=== PATIENT | male | born 1990 | race African-American/Black ===

== ENCOUNTER 2020-01-24 16:15 | Emergency (ER) | payer SELFPAY ==
[2020-01-24] MEDS ORDERED: NA CHLORIDE 0.9% 1,000 ML ONE (16:54)
[2020-01-24] MEDS ORDERED: dexAMETHasone 10 MG/ML VIAL ONE (17:01)
[2020-01-24 17:27] LABS: Absolute Lymphocytes (CBC) 1.8 K/uL (0.7-4.9); Basophils % 0.5 % (0-1.3); Hematocrit 48.6 % (39.6-49.0); Lymphocytes % 12.1 % (15.3-44.8); MPV 7.9 fL (7.6-11.3); RBC Red Blood Cell Count 5.41 M/uL (4.33-5.43)
[2020-01-24 17:41] LABS: BUN Blood Urea Nitrogen 10 mg/dL (7-18); Bicarbonate 27 mmol/L (21-32); Glucose Level 96 mg/dL (74-106); Potassium 3.7 mmol/L (3.5-5.1); Sodium Level 139 mmol/L (136-145)
--- NOTE | 2020-01-24 18:36 | EDPHYS ---
Physician Documentation [facility] Name: Hung Hernandez Jr Age: 29 yrs Sex: Male : 1990 Arrival Date: 01/24/2020 Time: 16:27 Bed 17 Private MD: ED Physician Reyes Shaffer HPI: 01/23 19:11 This 29 yrs old Black Male presents to ER via Ambulatory with complaints of SORE kb THROAT, DRY MOUTH, DEHYDRATION AND SWOLLEN GLANDS. 19:11 The patient presents with sore throat. The patient describes throat pain as constant. kb Onset: The symptoms/episode began/occurred 4 day(s) ago. Severity of symptoms: At their worst the symptoms were moderate, in the emergency department the symptoms are unchanged. Modifying factors: The symptoms are alleviated by nothing, the symptoms are aggravated by swallowing, Patient's oral intake status: limited fluid intake, limited food intake. Associated signs and symptoms: Pertinent positives: cough, fever, Sore throat. The patient has not experienced similar symptoms in the past. The patient has not recently seen a physician. Historical: - Allergies: 16:41 No Known Allergies; sv - PMHx: 16:41 None; sv - PSHx: 16:41 None; sv - Immunization history:: Adult Immunizations up to date. - Social history:: Smoking status: unknown. ROS: 19:09 Neck: Negative for injury, pain, and swelling, Cardiovascular: Negative for chest pain, kb palpitations, and edema, Abdomen/GI: Negative for abdominal pain, nausea, vomiting, diarrhea, and constipation, Back: Negative for injury and pain, MS/Extremity: Negative for injury and deformity, Skin: Negative for injury, rash, and discoloration. 19:09 Constitutional: Positive for fatigue, fever, malaise. 19:09 ENT: Positive for sore throat. 19:09 Respiratory: Positive for cough, Negative for dyspnea on exertion, hemoptysis, orthopnea, pleurisy, shortness of breath, sputum production, wheezing. 19:09 Neuro: Positive for headache. Exam: 19:09 Constitutional: This is a well developed, well nourished patient who is awake, alert, kb and in no acute distress. Head/Face: Normocephalic, atraumatic. Chest/axilla: Normal chest wall appearance and motion. Nontender with no deformity. No lesions are appreciated. Cardiovascular: Regular rate and rhythm with a normal S1 and S2. No gallops, murmurs, or rubs. Normal PMI, no JVD. No pulse deficits. Respiratory: Lungs have equal breath sounds bilaterally, clear to auscultation and percussion. No rales, rhonchi or wheezes noted. No increased work of breathing, no retractions or nasal flaring. Abdomen/GI: Soft, non-tender, with normal bowel sounds. No distension or tympany. No guarding or rebound. No evidence of tenderness throughout. Skin: Warm, dry with normal turgor. Normal color with no rashes, no lesions, and no evidence of cellulitis. MS/ Extremity: Pulses equal, no cyanosis. Neurovascular intact. Full, normal range of motion. Neuro: Awake and alert, GCS 15, oriented to person, place, time, and situation. Cranial nerves II-XII grossly intact. Motor strength 5/5 in all extremities. Sensory grossly intact. Cerebellar exam normal. Normal gait. 19:09 ENT: Posterior pharynx: Airway: normal, no evidence of obstruction, Tonsils: bilaterally enlarged, with erythema, Uvula: normal, midline, swelling, that is moderate, erythema, that is marked. Vital Signs: 16:39 Weight 95.25 kg; Height 5 ft. 11 in. (180.34 cm); Pain 8/10; sv 17:10 BP 149 / 94; Pulse 100; Resp 18; Temp 99.6; Pulse Ox 99% on R/A; dh4 18:57 BP 119 / 86; Pulse 88; Resp 18; Pulse Ox 100% ; ah 16:39 Body Mass Index 29.29 (95.25 kg, 180.34 cm) sv MDM: 16:28 Patient medically screened. kb 19:11 Data reviewed: vital signs, nurses notes. Data interpreted: Pulse oximetry: on room air kb is 100 %. Interpretation: normal. Counseling: I had a detailed discussion with the patient and/or guardian regarding: the historical points, exam findings, and any diagnostic results supporting the discharge/admit diagnosis, lab results, the need for outpatient follow up, a family practitioner, to return to the emergency department if symptoms worsen or persist or if there are any questions or concerns that arise at home. 01/23 16:49 Order name: CBC with Diff; Complete Time: 17:31 kb 01/23 16:49 Order name: Basic Metabolic Panel; Complete Time: 17:41 kb 01/23 16:49 Order name: Strep; Complete Time: 17:56 kb 01/23 16:49 Order name: COVID-19 kb 01/23 16:49 Order name: IV Start; Complete Time: 17:34 kb Administered Medications: 17:25 Drug: Decadron - Dexamethasone 10 mg Route: IVP; Site: left antecubital; 18:42 Follow up: Response: No adverse reaction 17:25 Drug: NS 0.9% 1000 ml Route: IV; Rate: 1000 ml; Site: left antecubital; 18:42 Follow up: Response: No adverse reaction; IV Status: Completed infusion 18:42 Drug: Bicillin L-A 1.2 million units Route: IM; Site: right ventrogluteal; Disposition: 01/24/20 18:36 Discharged to Home. Impression: Streptococcal pharyngitis. - Condition is Stable. - Discharge Instructions: Strep Throat, [id number]. - Medication Reconciliation Form, Thank You Letter, Antibiotic Education, Prescription Opioid Use form. - Follow up: Emergency Department; When: As needed; Reason: Worsening of condition. Follow up: Private Physician; When: 2 - 3 days; Reason: Recheck today's complaints, Continuance of care, Re-evaluation by your physician. Signatures: Dispatcher [employer] EDLara Hamilton, JAVIER-C OCCUPATIONAL PHYSICIAN-Lizz Gray RN RN Kaycee Marques RN RN Corrections: (The following items were deleted from the chart) 19:00 18:36 01/24/2020 18:36 Discharged to Home. Impression: Streptococcal pharyngitis. Condition is Stable. Forms are Medication Reconciliation Form, Thank You Letter, Antibiotic Education, Prescription Opioid Use. Follow up: Emergency Department; When: As needed; Reason: Worsening of condition. Follow up: Private Physician; When: 2 - 3 days; Reason: Recheck today's complaints, Continuance of care, Re-evaluation by your physician. kb
--- NOTE | 2020-01-24 18:36 | ER ---
Nurse's Notes [facility] Name: Hung Hernandez Jr Age: 29 yrs Sex: Male : 1990 Arrival Date: 01/24/2020 Time: 16:27 Bed 17 Private MD: Diagnosis: Streptococcal pharyngitis Presentation: 01/23 16:39 Chief complaint: Patient states: swollen tonsils, sore throat, decreased appetite, n/v, sv dry mouth x 3 days. Denies abd pain. Coronavirus screen: Surgical mask placed on patient. Patient moved to private room, placed in contact and droplet isolation with eye protection until further assessment. Patient reports a cough. Patient reports shortness of breath or difficulty breathing. Patient reports a measured and/or subjective temperature greater than 100.4F. Patient denies travel on a cruise ship or to a country the [facility] currently lists as an affected area. Patient denies contact with known and/or suspected case of COVID-19. Ebola Screen: No symptoms or risks identified at this time. Risk Assessment: Do you want to hurt yourself or someone else? Patient reports no desire to harm self or others. Onset of symptoms was January 21, 2020. 16:39 Method Of Arrival: Ambulatory sv 16:39 Acuity: KHUSHBU 3 sv 17:44 Initial Sepsis Screen: Does the patient meet any 2 criteria? No. Patient's initial ah sepsis screen is negative. Does the patient have a suspected source of infection? No. Patient's initial sepsis screen is negative. Triage Assessment: 16:41 General: Appears in no apparent distress. uncomfortable, Behavior is calm, cooperative, sv appropriate for age. Neuro: Level of Consciousness is awake, alert, obeys commands, Oriented to person, place, time, situation, Gait is steady. Respiratory: Respiratory effort is even, unlabored. Historical: - Allergies: 16:41 No Known Allergies; sv - PMHx: 16:41 None; sv - PSHx: 16:41 None; sv - Immunization history:: Adult Immunizations up to date. - Social history:: Smoking status: unknown. Screenin:55 Abuse screen: Denies threats or abuse. Denies injuries from another. Nutritional sv screening: No deficits noted. Tuberculosis screening: No symptoms or risk factors identified. Fall Risk None identified. Assessment: 17:40 General: Appears uncomfortable, Behavior is calm, cooperative, appropriate for age. General: Reports feeling ill for 12-24 hours. Pain:. Neuro: Level of Consciousness is awake, alert, obeys commands, Oriented to person, place, time, situation, Appropriate for age. Cardiovascular: Capillary refill < 3 seconds Patient's skin is warm and dry. Respiratory: Airway is patent Respiratory effort is even, unlabored. GI:. EENT: Throat with gag reflex present, extremely painful to swallow. Reports difficulty swallowing since 3days. Derm: Skin is intact, is healthy with good turgor. 18:40 Reassessment: Bicillin injection given at this time. Pt tolerated well. Vital Signs: 16:39 Weight 95.25 kg; Height 5 ft. 11 in. (180.34 cm); Pain 8/10; sv 17:10 BP 149 / 94; Pulse 100; Resp 18; Temp 99.6; Pulse Ox 99% on R/A; dh4 18:57 BP 119 / 86; Pulse 88; Resp 18; Pulse Ox 100% ; ah 16:39 Body Mass Index 29.29 (95.25 kg, 180.34 cm) sv ED Course: 16:27 Patient arrived in ED. fj1 16:28 Lara Rogers FNP-C is [facility]. kb 16:28 Reyes Shaffer MD is Attending Physician. kb 16:40 Triage completed. sv 16:41 Arm band placed on. sv 16:46 Kaycee Marques, RN is Primary Nurse. 16:55 Patient has correct armband on for positive identification. Bed in low position. Call light in reach. Door closed. Head of bed elevated. 17:43 No provider procedures requiring assistance completed. Initial lab(s) drawn, by nc, sent to lab. Strep swab sent to lab. covid swab. Inserted saline lock: 20 gauge in left antecubital area, using aseptic technique. 18:58 IV discontinued, intact, bleeding controlled, No redness/swelling at site. Pressure dressing applied. Administered Medications: 17:25 Drug: Decadron - Dexamethasone 10 mg Route: IVP; Site: left antecubital; 18:42 Follow up: Response: No adverse reaction 17:25 Drug: NS 0.9% 1000 ml Route: IV; Rate: 1000 ml; Site: left antecubital; 18:42 Follow up: Response: No adverse reaction; IV Status: Completed infusion 18:42 Drug: Bicillin L-A 1.2 million units Route: IM; Site: right ventrogluteal; Outcome: 18:36 Discharge ordered by . urszula 18:58 Discharged to home ambulatory. 18:58 Condition: good 18:58 Discharge instructions given to patient, Instructed on discharge instructions, follow up and referral plans. Demonstrated understanding of instructions, follow-up care. 19:00 Patient left the ED. Addendum: 01/29/2020 10:57 Addendum: COVID-19 Result: Negative result given to RN to notify pt. Unable to leave s s voice mail due to the number provided was either not a working number or has not been set up to take voice mails. Signatures: Lara Rogers, HAND DEVELOPER-C HAND DEVELOPER-CkLizz Dill RN RN Abby Tai RN RN ss James, Frank fj1 Kaycee Marques RN RN Johnny Benoit [facility] Corrections: (The following items were deleted from the chart) 01/23 19:00 18:40 Reassessment: [facility]
[2020-01-24] MEDS ORDERED: PEN G BENZ LA 1.2MU/2ML SYRINGE IM ONE (18:46)
[2020-01-24 19:15] VITALS: TEMP 99.6
[2020-01-24 19:17] VITALS: BP 119/86; O2SAT 100
== END 2020-01-24 19:00 | disposition home or self-care (01) ==
LOC: ER 16:15
DX: J02.0 Streptococcal pharyngitis (principal); Z20.828 Contact with and (suspected) exposure to other viral communicable diseases
CPT/HCPCS: 36415; 80048; 85025; 87081; 96361; 96372; 96374; 99284; J0561; J1100; J7030; U0001